=== PATIENT | female | born 1945 | race Caucasian/White ===

== ENCOUNTER 2024-12-18 23:37 | Inpatient (IN) | payer MEDICARE, OTHER, SELFPAY ==
[2024-12-18 18:27] VITALS: BP 141/70
[2024-12-18 19:01] LABS: % Basophils 0.7 % (0-2); % Eosinophils 2.1 % (0-6); % Immature Granulocytes 0.4 % (0-0.5); % Lymphocytes 30.5 % (20.5-51.1); % Monocytes 8.7 % (1.7-9.3); % Neutrophils 57.6 % (42.2-75.2); Absolute Basophils 0.1 10^3/uL (0-0.2); Absolute Eosinophils 0.2 10^3/uL (0-0.7); Absolute Lymphocytes 2.2 10^3/uL (1.2-3.4); Absolute Monocytes 0.6 10^3/uL (0.1-0.6); Absolute Neutrophils 4.2 10^3/uL (1.4-6.5); Hematocrit 26.1 % (37.0-47.0); Hemoglobin 9.3 g/dL (12.0-16.0); Mean Corp Hgb Conc. 35.6 g/dL (33.0-37.0); Mean Corpuscular Hgb 32.7 pg (27.0-31.0); Mean Corpuscular Volume 91.9 fL (81.0-99.0); Mean Platelet Volume 9.8 fL (7.4-10.4); Nucleated Red Blood Cells % 0 %; Platelet Count 275 10^3/uL (130-400); Red Blood Cell Count 2.84 10^6/uL (4.20-5.40); Red Cell Dist. Width 12.6 % (11.5-14.5); White Blood Cell Count 7.2 10^3/uL (4.8-10.8)
[2024-12-18 19:17] LABS: ALT (SGPT) 21 U/L (0-35); AST (SGOT) 23 U/L (14-36); Albumin 4.5 g/dl (3.5-5.0); Alkaline Phosphatase 48 U/L (38-126); Blood Urea Nitrogen 22 mg/dl (7-17); Calcium 10.1 mg/dl (8.4-10.2); Carbon Dioxide 27 mmol/L (22-30); Chloride 100 mmol/L (98-107); Glucose 100 mg/dl (70-99); Lipase 201 U/L (23-300); Potassium 3.7 mmol/L (3.5-5.1); Sodium 135 mmol/L (135-145); Total Bilirubin 0.3 mg/dl (0.2-1.3); Total Protein 6.8 g/dl (6.3-8.2); eGFR > 60.00
[2024-12-18 22:29] VITALS: BMI 30.5
[2024-12-18 22:31] VITALS: BP 134/54
--- NOTE | 2024-12-18 22:33 | ED.GENMED ---
History of Present Illness
General
Chief Complaint: Abdominal Symptoms
Source: patient
Exam Limitations: none
Time Seen by Provider: 12/18/24 22:21
Nursing documentation reviewed up to this point in time: agreed with
History of Present Illness
History of Present Illness:
Patient presents to ED secondary to 1 week history of 'dark stool', along with upper abdominal discomfort, similar to when she was admitted at [facility] secondary to partial bowel obstruction, relieved without surgical intervention. Patient
does take aspirin 81 mg daily. Denies fever or chills. Denies nausea or vomiting. Denies diarrhea. Denies trauma. Patient does report generalized weakness and fatigue since onset of symptoms.
Review of Systems
Review of Systems
Allergies reviewed?: Yes
All Other Systems: ROS reviewed and negative except as documented in HPI and ROS
Constitutional: Reports no symptoms; Denies fever
Respiratory: Reports no symptoms
Cardiac: Reports no symptoms
ABD/GI: Reports abdominal pain and black stools; Denies nausea, vomiting or diarrhea
: Reports no symptoms
Musculoskeletal: Reports no symptoms
Skin: Reports no symptoms
Neurological: Reports weakness
Phy Exam
Physical Exam
Physical Exam:
Physical Exam
General: no apparent distress, not acutely ill. afebrile
Head: nc/at. eomi
Neck: supple. no meningeal signs.
Heart: s1/s2 regular rate and rhythm
Lungs: no acute respiratory distress. clear bilaterally
Abdomen: normal bowel sounds. not tender. rectal exam (Reina RN, at bedside): dark brown stool, grossly heme positive
Neuro: alert and oriented x 3. no focal neurological deficits
Skin: no rash
Psychiatric: well kept. interactive and cooperative
Extremities: no edema. no calf tenderness.
Course
Orders/Labs/Results
Orders:
Orders
12/18/24 18:44
Type And Crossmatch [Type+Screen] Urgent
Complete Blood Count/With Diff Urgent
Comprehensive Metabolic Panel Urgent
Lipase Urgent
12/18/24 22:32
Pantoprazole [Protonix IV] 40 mg IV NOW STA
CR Obstruct Series W/pa Chest Urgent
Comment:
Reason For Exam: abd pain w hx SBO
12/18/24 22:36
ABO2 Routine
BBK Wristband Number:
Associate notified that ABO2 has been ordered: Y
Date: 12/18/24
Time: 19:21
Computer Information Science Professor ID: [id number]
12/18/24 23:00
Flush (0.9% Sodium Chloride) [Flush (Nss)] See Dose Instructions IV PER PROTOCOL
12/18/24 23:13
Admit/Transfer Patient As Directed
Co-Sign Provider:
Level of Care: Inpatient admission
Assign to:: Medical/Surgical
Physician / Group: Juan R Wagoner
Diagnosis: GI bleed
Reason for Hospitalization: GI bleed
Expected length of stay greater than two midnights?: Yes
ELOS- Estimated Length of Stay in days: 3
I certify the patient meets the requirements for IP care: Yes
PRN Pain Medication Management As Directed
May give lesser potent ordered pain med per pt: Yes
preference::
Protocol:: Medication orders for pain may be administered in a
manner that supports deferring to patient preference
when the pt is:
- Requesting an ordered lesser potent pain medication.
Least to most potent pain medications are defined
as: acetaminophen < NSAID < tramadol < opioids
(morphine, oxycodone, hydromorphone).
- Requesting a lesser dose of the same medication IF
ORDERED.
- Requesting a less intrusive route of administration
if both routes are prescribed by the provider (PO <
IV).
12/18/24 23:14
Code Status As Directed
Resuscitation Status: Full Code
12/19/24 00:52
0.9% Sodium Chloride 1000 ml [Nss] 1,000 ml IV 100 mls/hr
Acetaminophen [Tylenol] 650 mg PO Q4HPRN PRN
Ondansetron Injectable [Zofran] 4 mg IV Q6HPRN PRN
12/19/24 00:52
Consult Notification Routine
Specialty to Notify: Gastroenterology
GASTROINTESTINAL CONSULT Routine
Consulting Provider: Patric Phelan
Was physician already notified: No
Reason for consult: GI bleed
Activity As Directed
Activity Level: As Tolerated
INT (Intravenous Needle Therapy) As Directed
Comment: Place 2 IV catheters of the largest bore possible until stable
Intake/ Output As Directed
Frequency: Per unit guidelines
Orthostatic Vital Signs As Directed
Orthostatic VS Frequency: Now
Comment: then every four hours for twenty-four hours
Pneumatic Compression Sleeves As Directed
Type: Knee high
Vital Signs As Directed
Frequency: Per unit guidelines
Weight As Directed
Frequency: Once
Comment: on admission
DX Deep Vein Thrombosis Video Routine
12/19/24 01:28
H&H Q6H
12/19/24 Breakfast
NPO
Allow oral meds: Yes
Allow clear liquids: No
Basic Metabolic Panel IN AM
Complete Blood Count/No Diff IN AM
12/19/24 08:00
Aspirin Low Dose EC [Aspir Low (Enteric Coated)] 81 mg PO DAILY
Famotidine [Pepcid] 40 mg PO DAILY
Losartan [Cozaar] 100 mg PO DAILY
Metoprolol Xl [Toprol Xl] 100 mg PO DAILY
Multivitamin [Theragran] 1 tablet PO DAILY
Pantoprazole [Protonix IV] 40 mg IV BID
Pravastatin Sodium [Pravachol] 20 mg PO SuTuThSa@0800
Spironolactone [Aldactone] 25 mg PO DAILY
Vitamin B Complex with C [B COMPLEX w/VITAMIN C] 1 caplet PO DAILY
12/20/24 08:00
Pravastatin Sodium [Pravachol] 40 mg PO MoWeFr@0800
Abnormal Lab Results
12/18/24
18:44
RBC 2.84 L 10^6/uL
(4.20-5.40)
Hgb 9.3 L g/dL
(12.0-16.0)
Hct 26.1 L %
(37.0-47.0)
MCH 32.7 H pg
(27.0-31.0)
BUN 22 H mg/dl
(7-17)
Glucose 100 H mg/dl
(70-99)
12/18/24 18:44
12/18/24 18:44
Vital Signs
Initial and Last Documented VS:
Initial Vital Signs
Temp Pulse Resp BP Pulse Ox
98.9 F 89 16 141/70 98
12/18/24 18:27 12/18/24 18:27 12/18/24 18:27 12/18/24 18:27 12/18/24 18:27
Last Documented Vital Signs
Temp Pulse Resp BP Pulse Ox
98.0 F 79 20 149/53 96
12/19/24 00:50 12/19/24 00:50 12/19/24 00:50 12/19/24 00:50 12/19/24 00:50
MDM/Problems Addressed
MDM/Problems Addressed:
History and exam, consistent with likely upper GI bleed, possible gastritis versus bleeding ulcer. Benign abdominal exam otherwise, without any significant distention nor tenderness. Patient also has been moving her bowels on normal basis, as
such, highly doubtful that this is an obstructive process. As such, will obtain obstruction X x-ray series. If suggestive, we will proceed with CT abdomen pelvis.
Hemoglobin noted, significant drop compared to blood work reviewed from September 2024.
Blood transfusion consent on the chart. Will hold off blood transfusion at this time.
GI physician on-call, Dr. Phelan, notified via [employer] text.
*Critical Care Note
Total Time (30-74mins, 75-104mins- exclusive of procedures): Not Applicable
ED Attending Note
-
Portions of this chart may have been created with voice recognition software.� Occasional wrong word or��sound alike� substitutions may have occurred due to the inherent limitations of voice recognition software.
Discharge Plan
Departure
Patient Disposition: Admit
Date of Disposition: 12/18/24
Time of Disposition: 22:42
Admit to: Telemetry
Presentation/result/management discussed w/ accepting MD/DO: Hospitalist
Discharge Problem:
GI bleed
Interventions
Interventions:
*Risk Screen - Suicide Last Done: 12/18/24 18:27
*General Assessment Last Done: 12/18/24 18:27
*Neglect/Abuse Screening Last Done: 12/18/24 18:27
*ED- Fall Risk Assessment Last Done: 12/18/24 18:27
*ED COVID-19 Vaccine History Last Done: 12/18/24 18:27
*Nursing Disposition Last Done: 12/19/24 00:50
GG-Ieqbvh-Etkikdmtpb Assessment Last Done: 12/18/24 22:49
Discharge Date and Time
Discharge Date/Time: 12/19/24 00:51
--- NOTE | 2024-12-18 22:44 | HPS.HSE ---
Family Physician
-
Family Physician:
Chief Complaint
-
abdominal discomfort
History of Present Illness
Patient is a 79-year-old female with past medical history significant for hypertension, hyperlipidemia and GERD who presented to [facility] ED for evaluation of abdominal discomfort for 1 week. Patient reports bowel obstruction earlier this year with
similar discomfort. She reports that with the upper abdominal discomfort she has been experiencing dark stools for almost 1 week. Starting yesterday she began having increased weakness, dizziness, shortness of breath and nausea. She reports deciding
to come to ED for evaluation following instructions given from [facility] when she had bowel obstruction that if she had similar symptoms to go to ED for evaluation. Patient is awaiting a initial appointment with GI.
Medical History
Past Medical History
Past Medical History: Reports Other
Additional Past Medical History:
hypertension
hyperlipidemia
arrhythmia
GERD
Past Surgical History: Reports Other
Additional Past Surgical History:
hysterectomy
appendectomy
5 disc ectomies in lower back 1980s
Social History
Tobacco: Former Smoker
Alcohol: None
Drug: None
Living: With Family
Employment: Retired
Family History
Family History: Not pertinent
Allergies / Home Medications
Allergies reflects when Allergies were last updated in [employer].
Home Medications with original date entered in [employer]
Allergy/Medication List:
Allergies
Allergy/AdvReac Type Severity Reaction Status Date / Time
No Known Allergies Allergy Unverified 12/18/24 22:17
Home Medications
aspirin 81 mg tablet,delayed release 81 mg PO DAILY 12/18/24
famotidine 40 mg tablet 40 mg PO DAILY 12/18/24
losartan 100 mg-hydrochlorothiazide 12.5 mg tablet 1 tab PO DAILY 12/18/24
metoprolol succinate 100 mg tablet,extended release 24 hr 100 mg PO DAILY 12/18/24
ixiffsyjsmdo-dkbwmavo-dlfzra tablet 1 tab PO DAILY 12/18/24
ondansetron 8 mg disintegrating tablet 8 mg PO Q8H PRN nausea 12/18/24
pravastatin 20 mg tablet 20 mg PO .4 DAYS 12/18/24
pravastatin 40 mg tablet 40 mg PO .3 DAYS 12/18/24
spironolactone 25 mg tablet 25 mg PO DAILY 12/18/24
vitamin B complex 1 cap PO DAILY 12/18/24
Review of Systems
-
History Source: Patient
Constitutional: Reports Fatigue
Respiratory: Reports Trouble Breathing (shortness of breath )
Abdomen/GI: Reports Abdominal Pain, Nausea and Black Stools
Neurological: Reports Dizzy and Weakness
Physical Exam
Vital Signs
Vital Signs
Temp Pulse Resp BP Pulse Ox
98.9 F 89 20 134/54 94
12/18/24 18:27 12/18/24 22:31 12/18/24 22:31 12/18/24 22:31 12/18/24 22:30
Physical Exam
General: Well Developed, Well Nourished, No Apparent Distress, Comfortable, Conversant and Obese
HEENT: NormoCephalic, Moist mucous membranes, Atraumatic, [place] Conjunctivae, Nose Appears Normal and Ears Appear Normal
Respiratory: Clear
Cardiac: S1/S2 and Regular Rhythm
GI: Soft, Non Tender, Non Distended and Normal Bowel Sounds; No Organomegaly
Rectal: Hem Positive
Genito-urinary: Deferred by me
Musculoskeletal: No Clubbing, No Cyanosis and No Edema
Skin: Warm and IV/Catheter Site
Neuro: Awake, Alert, AO x 3 and Nonfocal/grossly intact
Psych: Calm and Intact Judgment/Insight
Laboratory Results
-
12/18/24 18:44
12/18/24 18:44
Laboratory Results
Total Bilirubin 0.3 mg/dl (0.2-1.3) 06/09/25 18:44
AST 23 U/L (14-36) 12/18/24 18:44
ALT 21 U/L (0-35) 12/18/24 18:44
Alkaline Phosphatase 48 U/L (38-126) 12/18/24 18:44
Lipase 201 U/L (23-300) 12/18/24 18:44
Data Reviewed
-
Lab Data: Labs Reviewed by me (hgb 9.3, hct 26.1)
Impression/Plan
-
IMPRESSION/PLAN:
#GI bleed
hgb 9.3, hct 26.1
stool heme positive
- Admit to med/surg
- Consult GI
- monitor h/h
- NPO
- IVF
- IV Protonix
- antiemetic
#arrhythmia
patient reports arrhythmia from but not a-fib
- continue metoprolol
#hypertension
- continue losartan-HCTZ and spironolactone
#hyperlipidemia
- continue pravastatin
#GERD
- continue famotidine
Code status: full code
DVT prophylaxis: SCDs
[2024-12-18 23:03] VITALS: BP 142/63
[2024-12-18] MEDS: PROTONIX IV 40 MG IV (23:12)
[2024-12-19] VITALS (9 sets, daily range): BP systolic 18–149; BP diastolic 51–90; PULSE 64–107
--- NOTE | 2024-12-19 00:14 | W.PN.UPDATE ---
Update Note
Progress Note Update
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
pylori, multiple intra-abdominal surgeries and complication with small bowel obstruction few months ago now status post conservative measures with spontaneous resolution who presents to the emergency department with epigastric discomfort for the
last 1 week. Patient reports epigastric pain radiating to the right upper quadrant with associated nausea, belching, dyspepsia with eating and burning sensation in the lower sternal region. She denies vomiting. She denies any diarrhea. She
reports melanotic stools for about 1 week. She denies hematochezia. She denies any palpitations or lightheadedness. She feels she denies feeling dizzy. Patient takes aspirin but denies any NSAID use.
In the emergency department she was found to be hemodynamically stable with a blood pressure of 130/80, pulse was 89 and she was satting 94% on room air. Respiratory rate was normal.
Hemoglobin was 9.3 which is down from 11, platelet count was normal. Electrolytes BUN/creatinine were normal.
She had a CT of the abdomen pelvis which was nonacute.
Rectal exam shows guaiac positive stools.
Assessment and plan
Epigastric pain, nausea, dyspepsia, melena consistent with likely peptic ulcer disease/gastritis. Given the melena higher concern for peptic ulcer disease and prior history of H. pylori noted. She is not on any NSAIDs but takes low-dose aspirin.
She is hemodynamically stable, in no acute distress and hemoglobin is 9.3
� Admit to telemetry
Clear liquid diet, n.p.o. after midnight
Type and screen
Trend H&H every 8-12 hours
-PPI IV twice daily
-Hold low-dose aspirin
- Orthostatic vital signs
- Iron panel
- GI consult
DVT prophylaxis�SCDs
CODE STATUS�full code
[2024-12-19] MEDS: NSS 1000 IV ×3 (01:32→19:53)
[2024-12-19 01:42] LABS: Hematocrit 26.1 % (37.0-47.0); Hemoglobin 9.3 g/dL (12.0-16.0)
--- NOTE | 2024-12-19 02:30 | PTCARENOTE ---
Pt received from ED via stretcher. Ambulated to bed w/assist. Oriented to surroundings and plan of care discussed. Admission and assessment completed. 2nd large bore IV placed by VAT RN. #20 RFA w/NSS at 100 mL, #22 LFA flushed an patent.
Instructed to ring for assist when getting OOB, verbalizes understanding. Call amy w/in reach.
[2024-12-19 06:53] LABS: Hematocrit 23.5 % (37.0-47.0); Hemoglobin 8.3 g/dL (12.0-16.0); Mean Corp Hgb Conc. 35.3 g/dL (33.0-37.0); Mean Corpuscular Hgb 32.5 pg (27.0-31.0); Mean Corpuscular Volume 92.2 fL (81.0-99.0); Mean Platelet Volume 10.5 fL (7.4-10.4); Platelet Count 219 10^3/uL (130-400); Red Blood Cell Count 2.55 10^6/uL (4.20-5.40); Red Cell Dist. Width 12.8 % (11.5-14.5); White Blood Cell Count 4.9 10^3/uL (4.8-10.8)
--- NOTE | 2024-12-19 07:09 | CON.GI ---
Consultation
-
Date/Time Consultation Performed: 12/19/24
Performing Provider: Dave Phelan MD
Reason for Consultation: melena
Medical History
Chief Complaint / HPI
Chief Complaint: weakness, dark stools
History of Present Illness:
The patient is a 79-year-old female past medical history as noted presents with weakness and dark stools. She was hospitalized in September at [place] with a partial small bowel obstruction required NG tube. After discharge, however she has been
feeling well up until the last week which has been noticing some upper epigastric discomfort, rating to the right side into her back. This has been associate with some nausea and belching, and has noted dark stools, black, over the past week. She
had some weakness and muscle cramping yesterday which prompted her to come to the emergency room where she was found to have significant anemia and elevated BUN. She takes rare NSAIDs, none significantly recently. She has had several dilations in
the past for what sounds like Schatzki's ring with Dr. Pepe at [place], last EGD and colonoscopy were in 2017 at [place] and otherwise okay by report.
Past Medical History
Past Medical History: Other (hypertension hyperlipidemia arrhythmia GERD dysphagia)
Past Surgical History: Other (hysterectomy appendectomy 5 disc ectomies in lower back 1980s)
Social History
Tobacco: Former Smoker
Alcohol: None
Family History
Family History: Reviewed & Not Pertinent
Allergies / Home Medications
Allergy/AdvReac Type Severity Reaction Status Date / Time
No Known Allergies Allergy Unverified 12/18/24 22:17
�Medication �Instructions �Recorded
aspirin 81 mg tablet,delayed 81 mg PO DAILY 12/18/24
release
famotidine 40 mg tablet 40 mg PO DAILY 12/18/24
losartan 100 1 tab PO DAILY 12/18/24
mg-hydrochlorothiazide 12.5 mg
tablet
metoprolol succinate 100 mg 100 mg PO DAILY 12/18/24
tablet,extended release 24 hr
rtdtdfbangjs-ftgjucpi-dohoxz tablet 1 tab PO DAILY 12/18/24
ondansetron 8 mg disintegrating 8 mg PO Q8H PRN nausea 12/18/24
tablet
pravastatin 20 mg tablet 20 mg PO .4 DAYS 12/18/24
pravastatin 40 mg tablet 40 mg PO .3 DAYS 12/18/24
spironolactone 25 mg tablet 25 mg PO DAILY 12/18/24
vitamin B complex 1 cap PO DAILY 12/18/24
Review of Systems
-
All other systems: A 12 pt ROS was Negative except as stated above in HPI
Vital Signs
Temp Pulse Resp BP Pulse Ox
98.0 F 79 20 149/53 96
12/19/24 00:50 12/19/24 00:50 12/19/24 00:50 12/19/24 00:50 12/19/24 00:50
Physical Exam
Exam
General: NAD
HEENT: MMM, anicteric, no lymphadenopathy
Heart: Regular, no murmurs
Lungs: CTA bilaterally
Abdomen: normal bowel sounds, soft, mild right upper quadrant tenderness, no rebound or guarding, no masses, bruits or ascites
Extremeties: no edema
Skin: no rashes
Results
WBC 4.9 10^3/uL (4.8-10.8) 12/19/24 06:08
Hgb 8.3 g/dL (12.0-16.0) L 12/19/24 06:08
Hct 23.5 % (37.0-47.0) L 12/19/24 06:08
MCV 92.2 fL (81.0-99.0) 12/19/24 06:08
Plt Count 219 10^3/uL (130-400) D 12/19/24 06:08
Absolute Neuts (auto) 4.2 10^3/uL (1.4-6.5) 12/18/24 18:44
Sodium 135 mmol/L (135-145) 12/18/24:
Potassium 3.7 mmol/L (3.5-5.1) 12/18/24:
Chloride 100 mmol/L (98-107) 12/18/24 18:
Carbon Dioxide 27 mmol/L (22-30) 12/18/24 18:
BUN 22 mg/dl (7-17) H 12/18/24
Creatinine 0.8 mg/dL (0.6-1.0) 12/18/24
Calcium 10.1 mg/dl (8.4-10.2) 12/18/24:
Total Bilirubin 0.3 mg/dl (0.2-1.3) 12/18/24
AST 23 U/L (14-36) 12/18/24:
ALT 21 U/L (0-35) 12/18/24
Alkaline Phosphatase 48 U/L (38-126) 12/18/24:
Lipase 201 U/L (23-300) 12/18/24:
Diagnostic Image Results:
Prior GI Procedures:
EGD:
Colonoscopy:
Assessment / Plan
-
1. Melena: over the past week, with associated upper abdominal discomfort and belching, with elevated BUN, most consistent with peptic ulcer disease. She is currently hemodynamically stable. At this point we will continue supportive care, IV
fluids, PPI twice daily, continue to trend labs and plan EGD today.
-
-
Thank you for consultation and allowing me to participate in the patient's care. Please call the production posting clerk GI physician during the after hours with any questions or concerns.
[2024-12-19] MEDS: THERAGRAN 1 TABLET PO (07:34)
[2024-12-19] MEDS: B COMPLEX w/VITAMIN C 1 CAPLET PO (07:34)
[2024-12-19] MEDS: PROTONIX IV 40 MG IV ×2 (07:34→19:43)
[2024-12-19] MEDS: NSS (PRESERVATIVE FREE) 10 ML IV ×2 (07:35→19:43)
[2024-12-19] MEDS: PRAVACHOL 20 MG PO (07:35)
[2024-12-19 07:37] LABS: Blood Urea Nitrogen 19 mg/dl (7-17); Calcium 9.2 mg/dl (8.4-10.2); Carbon Dioxide 26 mmol/L (22-30); Chloride 105 mmol/L (98-107); Estimated Creatinine Clearance 75 ml/min; Glucose 101 mg/dl (70-99); Iron 74 ug/dl (37-170); Potassium 3.6 mmol/L (3.5-5.1); Sodium 136 mmol/L (135-145); eGFR > 60.00
[2024-12-19 07:47] LABS: Percent Saturation 23 % (20-50); Total Iron Binding Capacity 316 ug/dl (265-497)
[2024-12-19 08:04] LABS: Ferritin 17.1 ng/ml (11.1-264.0)
[2024-12-19] MEDS: ALDACTONE PO (09:09)
[2024-12-19] MEDS: TOPROL XL PO (09:10)
[2024-12-19] MEDS: COZAAR 100 MG PO (09:20)
--- NOTE | 2024-12-19 09:24 | W.PN.HOSP.TC ---
Today's Communication/Plan
-
see A/P
Assessment / Plan
Assessment / Plan
HPI: 79-year-old female with past medical history significant for hypertension, hyperlipidemia and GERD; who presented to ED for evaluation of abdominal discomfort for 1 week. Patient reports bowel obstruction earlier this year with similar
discomfort. She has been experiencing dark stools for almost 1 week. Also c/o increased weakness, dizziness, shortness of breath and nausea.
A/P:
# GI bleed / Melena over the past week with associated upper abdominal discomfort and belching
# Acute blood loss anemia
hemodynamically stable
hgb 9.3 on admission, baseline Hgb at 11
Cont to trend Hgb
Cont IV fluids, PPI twice daily,
For EGD toda per GI .
# arrhythmia
patient reports arrhythmia from but not a-fib
continue metoprolol
# hypertension
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
# hyperlipidemia
continue pravastatin
# GERD
BUSINESS PROCESS CONSULTANT famotidine
Code status: full code
DVT prophylaxis: SCDs
DW RN
Anticipated Discharge: 24 - 48 hours
Subjective/Interval History
-
Date of Service: December 19, 2024
Objective Data
-
Labs:
Laboratory Results
12/19/24 12/19/24
01:28 06:08
WBC 4.9
Hgb 9.3 L 8.3 L
Hct 26.1 L 23.5 L
Plt Count 219 D
Sodium 136
Potassium 3.6
Chloride 105
Carbon Dioxide 26
BUN 19 H
Creatinine 0.6
Glucose 101 H
Calcium 9.2
Vital Signs:
Vital Signs
Temp Pulse Resp BP Pulse Ox
36.8 C 65 18 125/55 97
12/19/24 07:35 12/19/24 09:20 12/19/24 07:35 12/19/24 09:20 12/19/24 07:35
I&O
12/18/24 12/19/24 12/20/24
06:59 06:59 06:59
Intake Total 600 / 600
Balance 600 / 600
Review of Systems
-
History Source: Patient
Abdomen/GI: Reports Abdominal Pain (epigastric discomfort)
Physical Exam
-
General: Well Developed, Well Nourished, No Apparent Distress, Comfortable and Conversant; Negative Respiratory Distress
HEENT: Normocephalic, Atraumatic, Nose Appears Normal and Ears Appear Normal; Negative Oxygen
Respiratory: Clear to Auscultation and Non Labored Respirations; Negative Accessory Resp Muscle Use
Cardiac: Regular Rhythm and S1/S2
GI: Soft, Nontender, Normal Bowel Sounds and Tender (mild over epigastric)
Skin: Warm and Dry
Neuro: Awake, Alert, Oriented and AO x 3
Psych: Calm and Intact Judgement/Insight
Data Reviewed
-
Labs: Labs Reviewed by me
[2024-12-19 10:36] LABS: Hepatitis C Antibody Negative (Negative)
[2024-12-19 12:16] LABS: % Basophils 0.6 % (0-2); % Eosinophils 2.8 % (0-6); % Immature Granulocytes 0.2 % (0-0.5); % Lymphocytes 33.9 % (20.5-51.1); % Neutrophils 53.5 % (42.2-75.2); Absolute Eosinophils 0.1 10^3/uL (0-0.7); Absolute Lymphocytes 1.6 10^3/uL (1.2-3.4); Absolute Monocytes 0.4 10^3/uL (0.1-0.6); Absolute Neutrophils 2.5 10^3/uL (1.4-6.5); Hematocrit 24.6 % (37.0-47.0); Hemoglobin 8.9 g/dL (12.0-16.0); Mean Corp Hgb Conc. 36.2 g/dL (33.0-37.0); Mean Corpuscular Hgb 33.3 pg (27.0-31.0); Mean Corpuscular Volume 92.1 fL (81.0-99.0); Mean Platelet Volume 9.7 fL (7.4-10.4); Nucleated Red Blood Cells % 0 %; Platelet Count 221 10^3/uL (130-400); Red Blood Cell Count 2.67 10^6/uL (4.20-5.40); Red Cell Dist. Width 12.9 % (11.5-14.5); White Blood Cell Count 4.7 10^3/uL (4.8-10.8)
--- NOTE | 2024-12-19 16:35 | CM ---
Alert awake oriented patient who lives with her dgt Eleni in aa 2 story home with 1 steps to enter and 14 steps to bed/bathroom.She is independent in driving and in all activities of daily living.Offered VN she declined.
No adaptive devices
Never had VN/SNF
Pharmacy [facility]
PCP Dr Diaz
PLAN Home no needs
[2024-12-19] MEDS: NULYTELY SOLUTION 4 LITERS PO (17:01)
[2024-12-19 22:49] LABS: % Basophils 0.5 % (0-2); % Eosinophils 2.7 % (0-6); % Immature Granulocytes 0.4 % (0-0.5); % Lymphocytes 24.6 % (20.5-51.1); % Monocytes 8.3 % (1.7-9.3); % Neutrophils 63.5 % (42.2-75.2); Absolute Eosinophils 0.2 10^3/uL (0-0.7); Absolute Lymphocytes 1.4 10^3/uL (1.2-3.4); Absolute Monocytes 0.5 10^3/uL (0.1-0.6); Absolute Neutrophils 3.5 10^3/uL (1.4-6.5); Hematocrit 24.9 % (37.0-47.0); Hemoglobin 8.7 g/dL (12.0-16.0); Mean Corp Hgb Conc. 34.9 g/dL (33.0-37.0); Mean Corpuscular Hgb 32.6 pg (27.0-31.0); Mean Corpuscular Volume 93.3 fL (81.0-99.0); Mean Platelet Volume 9.5 fL (7.4-10.4); Nucleated Red Blood Cells % 0 %; Platelet Count 233 10^3/uL (130-400); Red Blood Cell Count 2.67 10^6/uL (4.20-5.40); Red Cell Dist. Width 13.2 % (11.5-14.5); White Blood Cell Count 5.6 10^3/uL (4.8-10.8)
[2024-12-20 03:39] VITALS: BP 111/64; BP 113/53; BP 120/69; PULSE 107; PULSE 123; PULSE 132
[2024-12-20] MEDS: NSS 1000 IV (05:53)
[2024-12-20 06:56] LABS: Hematocrit 22.6 % (37.0-47.0); Hemoglobin 7.9 g/dL (12.0-16.0); Mean Corpuscular Hgb 33.2 pg (27.0-31.0); Mean Platelet Volume 9.8 fL (7.4-10.4); Platelet Count 201 10^3/uL (130-400); Red Blood Cell Count 2.38 10^6/uL (4.20-5.40); Red Cell Dist. Width 13.5 % (11.5-14.5); White Blood Cell Count 5.2 10^3/uL (4.8-10.8)
[2024-12-20] MEDS: THERAGRAN 1 TABLET PO (07:02)
[2024-12-20] MEDS: NSS (PRESERVATIVE FREE) 10 ML IV ×2 (07:02→20:45)
[2024-12-20] MEDS: B COMPLEX w/VITAMIN C 1 CAPLET PO (07:02)
[2024-12-20] MEDS: PROTONIX IV 40 MG IV ×2 (07:02→20:45)
[2024-12-20 07:12] LABS: Blood Urea Nitrogen 10 mg/dl (7-17); Calcium 8.8 mg/dl (8.4-10.2); Carbon Dioxide 24 mmol/L (22-30); Chloride 112 mmol/L (98-107); Estimated Creatinine Clearance 64 ml/min; Glucose 96 mg/dl (70-99); Magnesium 2.1 mg/dl (1.6-2.3); Potassium 3.9 mmol/L (3.5-5.1); Sodium 141 mmol/L (135-145); eGFR > 60.00
[2024-12-20 07:57] VITALS: BP 116/51
[2024-12-20 09:54] VITALS: BP 113/52
--- NOTE | 2024-12-20 10:46 | W.PN.HOSP.TC ---
Today's Communication/Plan
-
see A/P
Assessment / Plan
Assessment / Plan
HPI: 79-year-old female with past medical history significant for hypertension, hyperlipidemia and GERD; who presented to ED for evaluation of abdominal discomfort for 1 week. Patient reports bowel obstruction earlier this year with similar
discomfort. She has been experiencing dark stools for almost 1 week. Also c/o increased weakness, dizziness, shortness of breath and nausea.
A/P:
# GI bleed / Melena over the past week, likely diverticular bleed
# Acute blood loss anemia due to above
hemodynamically stable
hgb 9.3 on admission, today at 7.9; baseline Hgb at 11
Cont to trend Hgb
Cont IV PPI twice daily,
s/p EGD 12/19: unrevealing, small hiatal hernia. Normal examined duodenum. No specimens collected.
s/p C scope 12/20: Diverticulosis in the entire examined colon. 2 polyps removed.
Pt did admit to chronic constipation in the past which has resolved with Metamucil use in the last 2 years
# arrhythmia
patient reports arrhythmia from but not a-fib
continue metoprolol
# hypertension
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
# hyperlipidemia
continue pravastatin
# GERD
[employer] STEAM FITTER famotidine
Code status: full code
DVT prophylaxis: SCDs
DW RN
Anticipated Discharge: Within 24 hours
Subjective/Interval History
-
Date of Service: December 20, 2024
Objective Data
-
Labs:
Laboratory Results
12/19/24 12/20/24
22:33 06:01
WBC 5.6 5.2
Hgb 8.7 L 7.9 L
Hct 24.9 L 22.6 L
Plt Count 233 201
Sodium 141
Potassium 3.9
Chloride 112 H
Carbon Dioxide 24
BUN 10
Creatinine 0.7
Glucose 96
Calcium 8.8
Vital Signs:
Vital Signs
Temp Pulse Resp BP Pulse Ox
36.3 C 78 18 113/52 93
12/20/24 09:54 12/20/24 09:54 12/20/24 09:54 12/20/24 09:54 12/20/24 09:54
I&O
12/19/24 12/20/24 12/21/24
06:59 06:59 06:59
Intake Total 600 / 600 1680 / 1680
Balance 600 / 600 1680 / 1680
Review of Systems
-
History Source: Patient
All other systems: Reviewed and negative
Physical Exam
-
General: Well Developed, Well Nourished, No Apparent Distress, Comfortable and Conversant; Negative Respiratory Distress
HEENT: Normocephalic, Atraumatic, Nose Appears Normal and Ears Appear Normal; Negative Oxygen
Respiratory: Clear to Auscultation and Non Labored Respirations; Negative Accessory Resp Muscle Use
Cardiac: Regular Rhythm and S1/S2
GI: Soft, Nontender, Nondistended and Normal Bowel Sounds
Skin: Warm and Dry
Neuro: Awake, Alert, Oriented and AO x 3
Psych: Calm and Intact Judgement/Insight
Data Reviewed
-
Labs: Labs Reviewed by me
[2024-12-20 11:13] VITALS: BP 116/61
[2024-12-20] MEDS: COZAAR 100 MG PO (11:16)
[2024-12-20] MEDS: PRAVACHOL 40 MG PO (11:16)
[2024-12-20] MEDS: TOPROL XL 100 MG PO (11:16)
[2024-12-20] MEDS: ALDACTONE 25 MG PO (11:17)
[2024-12-20 15:12] VITALS: BP 112/53
[2024-12-20 23:46] VITALS: BP 120/43
--- NOTE | 2024-12-21 06:04 | W.PN.GI.CBS2 ---
Today's Communication / Plan
-
Please see assessment and plan for details.
Assessment / Plan
-
1. Melena: over the past week, now with no further signs of bleeding. EGD was essentially negative, colonoscopy with pandiverticulosis and small polyps, likely right sided diverticular bleed. She is been doing well and no further signs of
bleeding overnight. At this point we will await morning labs, though if okay is okay to DC from GI standpoint, will follow-up in the office in 1 to 2 months.
Subjective
Subjective
Date of Service: December 21, 2024
Patient feeling well, no abdominal pain overnight, tolerated diet without difficulty, no signs of further bleeding.
Objective
Data Reviewed
Laboratory Data:
Laboratory Results
Magnesium 2.1 mg/dl (1.6-2.3) 12/20/24 06:01
Total Bilirubin 0.3 mg/dl (0.2-1.3) 12/18/24 18:44
AST 23 U/L (14-36) 12/18/24 18:44
ALT 21 U/L (0-35) 12/18/24 18:44
Alkaline Phosphatase 48 U/L (38-126) 12/18/24 18:44
Lipase 201 U/L (23-300) 12/18/24 18:44
Vital Signs and I&O:
Vital Signs
Temp Pulse Resp BP Pulse Ox
98.1 F 69 17 120/43 98
12/20/24 23:46 12/20/24 23:46 12/20/24 23:46 12/20/24 23:46 12/20/24 23:46
I&O
12/19/24 12/20/24 12/21/24
06:59 06:59 06:59
Intake Total 600 / 600 1680 / 1680 480 / 480
Balance 600 / 600 1680 / 1680 480 / 480
Physical Exam
Physical Exam
General: NAD
Abdomen: normal bowel sounds, soft, no tenderness, no masses or bruits, no ascites
[2024-12-21 07:11] LABS: Blood Urea Nitrogen 10 mg/dl (7-17); Calcium 8.9 mg/dl (8.4-10.2); Carbon Dioxide 23 mmol/L (22-30); Chloride 113 mmol/L (98-107); Estimated Creatinine Clearance 56 ml/min; Glucose 101 mg/dl (70-99); Potassium 4.1 mmol/L (3.5-5.1); Sodium 140 mmol/L (135-145); eGFR > 60.00
[2024-12-21 07:24] LABS: Hematocrit 22.9 % (37.0-47.0); Hemoglobin 7.9 g/dL (12.0-16.0); Mean Corp Hgb Conc. 34.5 g/dL (33.0-37.0); Mean Corpuscular Hgb 33.3 pg (27.0-31.0); Mean Corpuscular Volume 96.6 fL (81.0-99.0); Mean Platelet Volume 9.9 fL (7.4-10.4); Platelet Count 235 10^3/uL (130-400); Red Blood Cell Count 2.37 10^6/uL (4.20-5.40); Red Cell Dist. Width 13.8 % (11.5-14.5); White Blood Cell Count 5.1 10^3/uL (4.8-10.8)
[2024-12-21] MEDS: B COMPLEX w/VITAMIN C 1 CAPLET PO (07:39)
[2024-12-21] MEDS: ALDACTONE 25 MG PO (07:39)
[2024-12-21] MEDS: THERAGRAN 1 TABLET PO (07:40)
[2024-12-21] MEDS: COZAAR 100 MG PO (07:40)
[2024-12-21] MEDS: NSS (PRESERVATIVE FREE) IV ×2 (07:40→07:49)
[2024-12-21] MEDS: TOPROL XL 100 MG PO (07:40)
[2024-12-21] MEDS: PROTONIX IV IV ×2 (07:41→07:49)
[2024-12-21] MEDS: PRAVACHOL 20 MG PO (07:46)
[2024-12-21] MEDS: PROTONIX 40 MG PO (08:21)
--- NOTE | 2024-12-21 09:07 | W.PN.HOSP.TC ---
Addendum entered and electronically signed by Ivette Marquez MD 12/21/24 12:46:
total DC time 40 min
Original Note:
Today's Communication/Plan
-
DC home
Assessment / Plan
Assessment / Plan
HPI: 79-year-old female with past medical history significant for hypertension, hyperlipidemia and GERD; who presented to ED for evaluation of abdominal discomfort for 1 week. Patient reports bowel obstruction earlier this year with similar
discomfort. She has been experiencing dark stools for almost 1 week. Also c/o increased weakness, dizziness, shortness of breath and nausea.
A/P:
# GI bleed / Melena over the past week, likely diverticular bleed
# Acute blood loss anemia due to above
hemodynamically stable
hgb 9.3 on admission, today remained at 7.9; baseline Hgb at 11
Cont to check Hgb outpt with PCP
Pt was started with PPI twice daily, could discontinue following discharge, agreed by GI Dr Phelan
s/p EGD 12/19: unrevealing, small hiatal hernia. Normal examined duodenum. No specimens collected.
s/p C scope 12/20: Diverticulosis in the entire examined colon. 2 polyps removed.
Pt did admit to chronic constipation in the past which has resolved with Metamucil use in the last 2 years
# arrhythmia
patient reports arrhythmia from but not a-fib
continue metoprolol
# hypertension
[employer] Losartan-HCTZ, spironolactone, metoprolol
# hyperlipidemia
continue pravastatin
# GERD
[employer] famotidine
Code status: full code
DVT prophylaxis: SCDs
DW GI Dr Phelan. Ok to discharge without further PPI
Anticipated Discharge: Today
Subjective/Interval History
-
Date of Service: December 21, 2024
Objective Data
-
Labs:
Laboratory Results
12/21/24
05:58
WBC 5.1
Hgb 7.9 L
Hct 22.9 L
Plt Count 235
Sodium 140
Potassium 4.1
Chloride 113 H
Carbon Dioxide 23
BUN 10
Creatinine 0.8
Glucose 101 H
Calcium 8.9
Vital Signs:
Vital Signs
Temp Pulse Resp BP Pulse Ox
36.3 C 61 18 123/53 96
12/21/24 07:25 12/21/24 07:40 12/21/24 07:25 12/21/24 07:40 12/21/24 07:25
I&O
12/20/24 12/21/24 12/22/24
06:59 06:59 06:59
Intake Total 1680 / 1680 720 / 720
Balance 1680 / 1680 720 / 720
Review of Systems
-
History Source: Patient
All other systems: Reviewed and negative
Physical Exam
-
General: Well Developed, Well Nourished, No Apparent Distress, Comfortable and Conversant; Negative Respiratory Distress
HEENT: Normocephalic, Atraumatic, Nose Appears Normal and Ears Appear Normal; Negative Oxygen
Respiratory: Clear to Auscultation and Non Labored Respirations; Negative Accessory Resp Muscle Use
Cardiac: Regular Rhythm and S1/S2
GI: Soft, Nontender, Nondistended and Normal Bowel Sounds
Skin: Warm and Dry
Neuro: Awake, Alert, Oriented and AO x 3
Psych: Calm and Intact Judgement/Insight
Data Reviewed
-
Labs: Labs Reviewed by me
--- NOTE | 2024-12-21 09:54 | CM ---
Chart reviewed and patient is for discharge to home today, no needs, son to transport, IMM completed.
Plan; Home no needs.
[2024-12-21 11:08] VITALS: BP 124/73
--- NOTE | 2024-12-21 12:32 | W.DCSUMMARY ---
Discharge Summary
Discharge Data
Date of Admission: 12/18/24
Date of Discharge: 12/21/24
-
Pending Results: No
Hospital Course
Principal Diagnosis:
GI bleed / melena likely diverticular bleed
Acute blood loss anemia due to above
Chronic Diagnoses:�
Arrhythmia
Hypertension, on Losartan-HCTZ, spironolactone, metoprolol [employer]
Hyperlipidemia, on pravastatin
GERD, on famotidine
Consultations:�
Gastroenterology
Procedures:�
s/p EGD 12/19: unrevealing, small hiatal hernia. Normal examined duodenum. No specimens collected.
s/p C scope 12/20: Diverticulosis in the entire examined colon. 2 polyps removed.
Clinical course:�
This is a 79-year-old female with past medical history as stated above, who presented with abdominal discomfort and dark stools for almost 1 week. She also c/o increased weakness, dizziness, shortness of breath and nausea.
Problem 1:
GI bleed / Melena likely diverticular bleed.
Acute blood loss anemia due to above.
She has been hemodynamically stable while in the hospital.
Her hemoglobin was at 9.3 on admission (baseline 11), and it remained stable at 7.9 on the day of discharge.
She underwent EGD on 12/19, which was unrevealing, noted small hiatal hernia, normal duodenum, no specimens was collected.
She also underwent C scope 12/20 which showed diverticulosis in the entire examined colon, 2 polyps removed.
The patient has been provided a CBC prescription to check repeat hemoglobin outpatient; she can send the result to her PCP.
As for the rest of her medical problems, they were stable during her hospital stay.
Discharge Plan
-
Patient Disposition: Home (Routine Discharge)
Discharge Diagnosis/Procedures: GI bleed / Melena likely diverticular bleed;
Acute blood loss anemia due to above
Condition: Fair
Diet: As tolerated
Activity: As tolerated
Driving Restrictions: As prior to admission
Blood Work: CBC in 1 week, result to PCP
Referrals:
Patric Garcia MD [Family Provider, Internal Medicine] - in less than 1 week
Prescriptions:
Continued
pravastatin 40 mg Tablet
40 mg PO .3 DAYS
famotidine 40 mg Tablet
40 mg PO DAILY
metoprolol succinate 100 mg Tablet Extended Release 24 Hr
100 mg PO DAILY
aspirin 81 mg Tablet,Delayed Release (Dr/Ec)
81 mg PO DAILY
spironolactone 25 mg Tablet
25 mg PO DAILY
ondansetron 8 mg Tablet,Disintegrating
8 mg PO Q8H PRN (Reason: nausea)
pravastatin 20 mg Tablet
20 mg PO .4 DAYS
vitamin B complex Capsule
1 cap PO DAILY
[id number]-[id number] Tablet
1 tab PO DAILY
losartan-hydrochlorothiazide 100-12.5 mg Tablet
1 tab PO DAILY
Discharge Orders:
Discharge Patient (As Directed); Ordered 12/21/24
Ordered By: Ivette Marquez
Discharge Date and Time
Discharge Date/Time: 12/21/24 11:50
Print Language: [id number]
== END 2024-12-21 11:50 | disposition home or self-care (01) | DRG 378 ==
LOC: 4 EAST ACU 23:37
PROVIDERS: Emergency Medicine; Nurse Practitioner Family; ADMITTING PHYSICIAN Internal Medicine; ATTENDING PHYSICIAN Internal Medicine; CONSULT PHYSICIAN Internal Medicine Gastroenterology; EMERGENCY PHYSICIAN Emergency Medicine; FAMILY PHYSICIAN Internal Medicine
PROC: 0DJ08ZZ Inspection of Upper Intestinal Tract, Via Natural or Artificial Opening Endoscopic (ICD-10-PCS; 2024-12-19)
PROC: 0DBK8ZZ Excision of Ascending Colon, Via Natural or Artificial Opening Endoscopic (ICD-10-PCS; 2024-12-20)
PROC: 0W3P8ZZ Control Bleeding in Gastrointestinal Tract, Via Natural or Artificial Opening Endoscopic (ICD-10-PCS; 2024-12-20)
DX: K57.31 Diverticulosis of large intestine without perforation or abscess with bleeding (principal); D62 Acute posthemorrhagic anemia; K44.9 Diaphragmatic hernia without obstruction or gangrene; D12.2 Benign neoplasm of ascending colon; K64.8 Other hemorrhoids; K21.9 Gastro-esophageal reflux disease without esophagitis; E78.5 Hyperlipidemia, unspecified; I10 Essential (primary) hypertension; Z79.82 Long term (current) use of aspirin; Z87.891 Personal history of nicotine dependence; Z79.899 Other long term (current) drug therapy; Z86.19 Personal history of other infectious and parasitic diseases; Z87.11 Personal history of peptic ulcer disease; Z90.710 Acquired absence of both cervix and uterus
CPT/HCPCS: 88305; 74022; 80048; 80053; 82728; 83540; 83550; 83690; 83735; 85014; 85018; 85025; 85027; 86803; 86850; 86900; 86901; 96374; 97161; 99285